=== PATIENT | female | born 2000 | race African-American/Black ===

== ENCOUNTER 2024-04-01 12:58 | Emergency (ER) | payer OTHER ==
[~2024-04-01] VITALS: Ht 167.6 cm; Wt 68.0 kg
[2024-04-01 13:05] VITALS: TEMP 36.8; O2SAT 100
[2024-04-01] MEDS: IBUPROFEN 600MG TABLET PO ONE (13:58)
[2024-04-01] MEDS ORDERED: IBUP-2029 MT (14:01)
[2024-04-01] MEDS ORDERED: METH-653 MT (14:01)
[2024-04-01 14:32] VITALS: BP 123/71; PULSE 93; RESP 20; O2SAT 100
== END 2024-04-01 14:33 | disposition home or self-care (01) ==
LOC: ER 12:58
DX: S83.91XA Sprain of unspecified site of right knee, initial encounter (principal); S20.219A Contusion of unspecified front wall of thorax, initial encounter; F12.90 Cannabis use, unspecified, uncomplicated; V89.2XXA Person injured in unspecified motor-vehicle accident, traffic, initial encounter; Y93.89 Activity, other specified; Y92.410 Unspecified street and highway as the place of occurrence of the external cause; Y99.8 Other external cause status
CPT/HCPCS: 71045; 73564; 99284